=== PATIENT | male | born 1945 | race Caucasian/White ===

== ENCOUNTER 2021-03-25 13:03 | Inpatient (IN) | payer OTHER ==
[~2021-03-25] VITALS: Ht 167.6 cm; Wt 58.3 kg
[2021-03-25 13:39] LABS: BASOPHILS ABSOLUTE AUTO 0.02 K/mm3 (0.00-0.23); BASOPHILS PERCENT AUTO 0 % (0-2); EOSINOPHILS ABSOLUTE AUTO 0.01 K/mm3 (0.00-0.68); EOSINOPHILS PERCENT AUTO 0 % (0-6); Hematocrit 47.5 % (37.0-53.0); Hemoglobin 15.7 g/dL (13.5-17.5); IMMATURE GRAN ABSOLUTE AUTO 0.02 K/mm3 (0.00-0.10); IMMATURE GRAN PERCENT AUTO 0 % (0-1); LYMPHOCYTES ABSOLUTE AUTO 1.05 K/mm3 (0.84-5.20); LYMPHOCYTES PERCENT AUTO 14 % (21-46); MONOCYTES PERCENT AUTO 8 % (4-13); Mean Corpuscular HGB 30.6 pg (26.0-34.0); Mean Corpuscular HGB Conc 33.1 g/dL (31.5-36.5); Mean Corpuscular Volume 93 fL (80-100); Mean Platelet Volume 10.1 fL (9.1-12.4); NEUTROPHILS ABSOLUTE AUTO 6.08 K/mm3 (1.96-9.15); NEUTROPHILS PERCENT AUTO 78 % (41-73); Platelet Count 200 K/mm3 (150-400); RDW Standard Deviation 44.9 fL (35.1-46.3); Red Blood Cell Count 5.13 M/mm3 (4.30-5.90); White Blood Cell Count 7.78 K/mm3 (4.00-11.30)
[2021-03-25] MEDS ORDERED: ZOCOR20 MG PO (13:59)
[2021-03-25] MEDS ORDERED: OMEP20ER PO (13:59)
[2021-03-25] MEDS ORDERED: CYCL10 PO (14:00)
[2021-03-25] MEDS ORDERED: VITAMIN D325 MC3 PO (14:02)
[2021-03-25] MEDS ORDERED: GABA800 PO (14:02)
[2021-03-25] MEDS ORDERED: ZESTORETIC 20-1 EAC1 PO (14:03)
[2021-03-25] MEDS ORDERED: HYDR1TAB94 PO (14:04)
[2021-03-25 14:05] LABS: Alanine Aminotransfer (ALT/SGP 17 U/L (12-78); Albumin, Blood 3.2 g/dL (3.4-5.0); Albumin/Globulin Ratio 0.8 (0.8-1.8); Alk Phos 132 U/L (50-136); Anion Gap 6 mmol/L (6-16); Aspartate Aminotrans (AST/SGOT 32 U/L (12-37); Bilirubin, Total 0.8 mg/dL (0.1-1.0); Blood Urea Nitrogen 13 mg/dL (8-24); Bun/Creatinine Ratio 16.1 (12.0-20.0); CO2, Blood 28 mmol/L (21-32); Calcium, Blood 9.1 mg/dL (8.5-10.1); Chloride, Blood 102 mmol/L (98-108); Creatinine, Blood 0.81 mg/dL (0.60-1.20); Globulin, Blood 3.9 g/dL (2.2-4.0); Glomerular Filtration Rate >60 (60-); Glucose, Blood 113 mg/dL (70-99); Potassium, Blood 4.4 mmol/L (3.5-5.5); Sodium, Blood 136 mmol/L (136-145); Total Protein, Blood 7.1 g/dL (6.4-8.2)
[2021-03-25 14:06] LABS: Source, Urine Voided
[2021-03-25 14:09] LABS: Ethanol (Alcohol), Blood, Med <3 mg/dL
[2021-03-25 14:17] LABS: Bilirubin, Urine Neg (Neg); Blood, Urine Neg (Neg); Glucose Qualitative, Urine Neg (Neg); Ketones, Urine 1+ (Neg); Leukocyte Esterase, Urine Neg (Neg); Nitrite, Urine Neg (Neg); Protein, Urine Neg (Neg); Specific Gravity, Urine 1.025 (1.003-1.022); Urobilinogen, Urine NORM (Normal)
[2021-03-25 14:21] LABS: Appearance, Urine Clear (Clear); Color, Urine Pale Yellow (P-Yellow)
[2021-03-25 14:46] LABS: Influenza A, PCR NEGATIVE (NEGATIVE); Influenza B, PCR NEGATIVE (NEGATIVE); Resp Syncytial Virus, PCR NEGATIVE (NEGATIVE); SARS-Cov-2 (COVID-19) PCR, MMC NEGATIVE (NEGATIVE)
--- NOTE | 2021-03-25 21:30 | NUR ---
HOSPITALIST CALL ASSUMED CARE OF PT AT 2100. PT ARRIVED ON STRETCHER WITH CARDIZEM DTT. PT BLOOD PRESSURE WAS 104 SYSTOLIC. H&P NOTE STATED PT WAS TO HAVVE PRMISSIVE HYPERTENSIVE HTN. CALL MAKJOSE TO DR. BISHOP. ORDERED AMIO DTT WITH BOLUS AND 500NS BOLUS. PT BP DROPPED TO 91 SYSTOLIC, BOLUS STOPPED BUT DTT CONTINUED TO TO AFIB. AT 2230 PT CONVERTED TO SINUS IN THE 70'S. BLOOD PRESSURES STABLE IN THE 110-119 SYSTOLIC RANGE.
--- NOTE | 2021-03-26 06:06 | NUR ---
SHIFT SUMMARY ASSUMED CARE OF PT AT 1900. PT IS A/OX4. SPEAK IS GARBLED AND PT HAS TROUBLE FINDING WORDS. PT L SIDE IS WEAK, PT UNABLE TO MOVE ON HIS OWN. LEG AND ARMS HAVE JERKING MOVEMENTS WHEN TOUCHED. PT STATES HE CAN STILL FEEL SENSATION AND THAT HE CAN OMVE HIS LIMBS BUT PT UNABLE TO MOVE THEM ON HIS COMMAND. PT HAS L EYE AND FACIAL DROOP. PT WAS CONTIENT OF URINE ONCE AND INCONTIENT A DIFFERENT TIME. PT WAS IN AFIB RVR AT THE START OF SHIFT BUT CONVERTED TO SINUS RHYTHM. PT IS NOW BACK INTO AFIB @ 0600. RATE CONTROLLED AT 114 BPM. VITALS STABLE, AMIO DTT RUNNING.
--- NOTE | 2021-03-26 10:17 | NUR ---
UPDATE PT SEEN BY SPEECH THERAPY, SPEECH THERAPIST PUT IN ORDERS FOR NO PO MEDS. DR NOTIFIED OF SPEECH THERAPY ORDERS AT 1019. INSTRUCTIONS TO HOLD ALL ORAL MEDS FROM
--- NOTE | 2021-03-26 16:54 | NUR ---
SHIFT SUMMARY PT A/O X4 AND COOPERATIVE OF CARE. VSS THROUGHOUT SHIFT WITH O2 SATS >94% ON RA. NE REPORT OF CHEST PAIN/PRESSURE THROUGHOUT SHIFT. NO REPORT OF DYSPNEA/SOB THROUGHOUT SHIFT. PT SEEN BY SPEECH THERAY, FAILLED SWALLOW EVAL. PT NPO, CAN HAVE ICE CHIPS. PT SEEN BY PT/OT, PT ABLE TO SIT AT EDGE OF BED, TOLERATED WELL. AMIO GTT RUNNING PER EMAR. NS RUNNING PER EMAR. PT ABLE TO TURN SELF ON LEFT SIDE AND BACK TO HIS BACK.
--- NOTE | 2021-03-27 05:33 | NUR ---
SHIFT SUMMARY: PATIENT'S BP PERMISSABLY HIGH, HR AND O2 WNL. A&O X4. PATIENT HAS SMOKER COUGH. Q4 ORAL CARE PROVIDED WITH PATIENT IN 90* POSITION TO RELIEVE DRY MOUTH AND SUCTION PHLEGM PATIENT DOES NOT PROTECT AIRWAY WELL. PATIENT SHIFTS IN BED, BUT UNABLE TO MOVE LEFT SIDE. PREFERS TO LAY ON LEFT SIDE. PATIENT HAS HAD LITTLE OUTPUT THIS SHIFT - ONE INCONTINENT EVENT. PLEASANT AND COOPERATIVE WITH CARE - VERY MODEST. WILL CONTINUE TO MONITOR AND REPORT TO ONCOMING RN.
--- NOTE | 2021-03-27 15:16 | NUR ---
TRANSFER SUMMARY: PATIENT WAS TRANSPORTED VIA BED BY RN AND PCT, PATIENT HAD IMPROVING NEURO CHECKS, AND LEFT SIDED DEFICIT WAS MINIMALLY BETTER. PATIENT HAS BEEN ON RA SP02>95%. PATIENT SB TO SR MID 50-60'S DENIED CHEST PAIN, SOB. INFUSING 75mL, TO FINISH THE SECOND BAG THAT IS ORDERED. PATIENT HAD A RIGHT FOREARM IV 20 GAUGE. LEFT PUPIL WAS MORE SLUGGISH. R = 3 L = 4. Q2 TURNS AND Q4 ORAL CARE. PATIENT AND RECIEVING RN HAD NO QUESTIONS COMMENTS OR CONCERNS.
--- NOTE | 2021-03-27 18:03 | NUR ---
SHIFT SUMMARY: ASSUMED CARE OF PATIENT AT 1504 UPON HIS ARRIVAL FROM PCU. A&O X 2, LUE AND LLE WITH NO MOTOR RESPONSE, BUT SENSATION INTACT. DENIES PAIN. TELEMETRY SHOWS SINUS ALBA-SINUS RHYTHM 55-70 WITH PAC'S. NO S/S OF ETOH W/D. TOLERATING MEDS IN VANILLA PUDDING. ATTENDS IN PLACE.
--- NOTE | 2021-03-28 05:18 | NUR ---
SHIFT SUMMARY: VSS, CIWA SCORES ARE "0". ABLE TO MAKE HIS NEEDS KNOW WITH A CLEAR VOICE. LEFT UPPER EXT. IS FLACCID, LEFT LEG HAS VERY SLIGHT MOVEMENT AT TIMES. GENERALIZED WEAKNESS OBSERVED. INC. OF URINE. A LOOSE COUGH OBSERVED, UNABLE TO BRING SECRETIONS UP OUT OF MOUTH AND NEEDS SUCTIONING PRN. MUCUS IS CLEAR. SOME COUGHING OBSERVED WITH FLUID INTAKE VIA SPOON. PILLS ARE GIVEN CRUSED IN APPLE SAUCE. LOPRESSOR WAS HELD AT HS DUE TO BRADYCARDIA 56-60.
--- NOTE | 2021-03-28 16:55 | NUR ---
PATIENT IS AWAKE,ALERT AND ORIENTED TIMES THREE WITH LEFT SIDE WEAKNESS. PATIENT WAS ABLE TO MOVE BOTH UPPER AND LOWER EXTREMITIES ON THE LEFT SIDE. PATIENT SPOKE TO VIA PHONE, HAD APPRORIATE CONVERSATION.NO ACUTE DISTRESS NOTED.
--- NOTE | 2021-03-29 06:39 | NUR ---
SHIFT SUMMARY: NO SIGNIFICANT EVENTS OVER NIGHT. LEFT SIDED WEAKNESS. LIMITED MOVEMENT, HAND BULKER ABSENT. WEAK WET COUGH. LCTA E/U RESP. TELE=SB/NSR. INCONT OF URINE, NO BM. CIWA < 2.
--- NOTE | 2021-03-29 14:10 | NUR ---
PT ARRIVED TO SCU FROM MEDICAL FLOOR AT APPROX 1410 POST FALL IN ROOM/HEAD INJURY. PT IN AxOx4. PLEASANT AND COOPERATIVE WITH CARE. AND SON IN ROOM WITH HIM. NEURO CHECK WNL. PT HAD CT OF HEAD POST FALL. CALLED TO ROOM TO DISCUSS RESULTS. TYLENOL GIVEN FOR HEADACHE. PT REPORTS PAIN IN HEAD AND SOME DROWSINESS. OTHERWISE, FEELING "OK" REPORT TAKEN FROM [facility] FLOOR NURSE, ZAKIA. PT CURRENTLY LAYING IN BED WITH CALL LIGHT IN REACH. REMINDED TO CALL IF HE NEEDS ANYTHING/BEFORE GETTING UP. PT VERBALIZES UNDERSTANDING.
--- NOTE | 2021-03-29 15:17 | NUR ---
PATIENT WAS TRNASFER TO THE SCU FOR CLOSELY MONTORING. REPORT GIVEN TO STEPH. FAMILY AT BEDSIDE.
--- NOTE | 2021-03-29 18:40 | NUR ---
SHIFT SUMMARY PT AxOx4. PLEASANT AND COOPERATIVE WITH CARE. PT ARRIVED TO SCU AT APPROX 1410 AFTER FALL IN ROOM ON MEDICAL FLOOR. CT HEAD DONE. VITALS STABLE. FAMILY IN ROOM. NEURO CHECKS WNL. DR IN ROOM TALKING WITH FAMILY ABOUT STATUS AND CARE PLAN. PT REPORTS HEADACHE. MEDICATED PER EMAR WITH REPORTED RELIEF. CURRENT PLAN IS TO MONITOR FOR BLEEDING/AMS AND PLAN DC TO SNF. PT CURRENTLY SITTING IN BED EATING DINNER. DENIES ANY NEEDS AT THIS TIME. CALL LIGHT IN REACH.
--- NOTE | 2021-03-30 06:57 | NUR ---
PT with acute RT CVA recently transferred from [facility] after ground level fall with headhit yesterday. Neuro checks Q 4 hours unchanged & PT responsds to verbl stimuli. LT upper extem flaccid nilat le wek. Room air but PT has loose moist nonprod cough. [employer] PT recieves [facility] services. DC planning to stroke rehab. long time smoker, no active ETOH WD noted.
--- NOTE | 2021-03-30 17:32 | NUR ---
ELECTRICAL SERVICE TECHNICIAN NOTIFIED RN OF PATIENT'S 6 BEAT RUN OF VTACH. PATIENT STATES HE WAS ASYMPTOMATIC AT THAT TIME. DR. ABAD NOTIFIED
--- NOTE | 2021-03-30 17:48 | NUR ---
PATIENT IS ALERT AND ORIENTED TO SELF AND FOLLOWING DIRECTIONS. LEFT HAND IS FLACCID, HE IS ABLE TO LIFT HIS LEFT ARM. LEFT LEG IS WEAKER THAN THE RIGHT BUT HE IS ABLE TO MOVE IT AND STAND. HE LEANS WITH STANDING. PATIENT WORKED WITH PT AND OT TODAY, SAT UP ON THE EDGE OD BED AND STOOD WITH 2PA. NO C/O HEADACHE. ST WORKED WITH THE PATIENT TODAY, NO CHANGES TO HIS DIET. A MODIFIED BARIUM SWALLOW IS ORDERED FOR TOMORROW. INCONTINENT OF BOWEL AND BLADDER, ATTENDS IN PLACE. WILL CONTINUE TO MONITOR
--- NOTE | 2021-03-31 06:52 | NUR ---
PT making good progress post acute CVA with lt sided hemiparesis with improved strenth lt upper & lower extremity. No acute alcohol withdrawl noted. Neuro checks slightly improving. Tolerating diet pureed 90 to 100%. HAs barium swallow pending today. Medicated to headache pain x 1 with helpful effect.
--- NOTE | 2021-03-31 16:11 | NUR ---
PATIENT A&O 1-2, COOPERATIVE WITH CARE, ABLE TO FOLLOW DIRECTIONS. LEFT ARM FLACCID, LEFT LEG WEAKER THAT THE RIGHT. BARIUN SWALLOW STUDY DONE TODAY, PATIENT WILL CONTINUE ON PUREE DIET, THIN LIQUID WITH SPOON. DENIES PAIN OR DISCOMFORT, IN BED. NO ACUTE CHANGES DURING THIS SHIFT.
[2021-04-01 05:25] LABS: Albumin, Blood 2.4 g/dL (3.4-5.0); Anion Gap 3 mmol/L (6-16); Blood Urea Nitrogen 9 mg/dL (8-24); Bun/Creatinine Ratio 14.4 (12.0-20.0); CO2, Blood 29 mmol/L (21-32); Calcium, Blood 8.4 mg/dL (8.5-10.1); Chloride, Blood 107 mmol/L (98-108); Creatinine, Blood 0.63 mg/dL (0.60-1.20); Glomerular Filtration Rate >60 (60-); Glucose, Blood 91 mg/dL (70-99); Magnesium, Blood 1.9 mg/dL (1.6-2.4); Phosphorus, Blood 3.1 mg/dL (2.5-4.9); Potassium, Blood 3.8 mmol/L (3.5-5.5); Sodium, Blood 139 mmol/L (136-145)
--- NOTE | 2021-04-01 06:24 | NUR ---
Patient is alert and oriented x4. Left sided weakness present during assessment. Patient is unable to lift his left arm. Left leg has weakness. Q2 turns completed. Patient provided with thickened drink. No complains of pain. No signs of distress. Patient is able to verbalize his needs. Verbal is slow, but understandable. VS are wnl. Call light within reach. Bed alarm on.
[2021-04-01 14:26] LABS: Influenza A, PCR NEGATIVE (NEGATIVE); Influenza B, PCR NEGATIVE (NEGATIVE); Resp Syncytial Virus, PCR NEGATIVE (NEGATIVE); SARS-Cov-2 (COVID-19) PCR, MMC NEGATIVE (NEGATIVE)
[2021-04-01] MEDS ORDERED: ACET325 PO (15:54)
[2021-04-01] MEDS ORDERED: METO25ER PO (15:54)
[2021-04-01] MEDS ORDERED: ATOR80 PO (15:54)
[2021-04-01] MEDS ORDERED: NICO21TP TOP (15:55)
[2021-04-01] MEDS ORDERED: ASPI81CH PO (15:55)
--- NOTE | 2021-04-01 16:06 | NUR ---
PATIENT DISCHARGED TO [facility]. PATIENT STABLE, DENIES PAIN OR DISCOMFORT. DISCHARGE ORDERS SENT WITH [facility] BELONGINGS. TRANSPORTED VIA W/C. REPORT CALLED TO [place], RECEIVING NURSE.
== END 2021-04-01 15:49 | DRG 65 ==
LOC: ER 13:03 → MEDS 18:35 → PCU 18:35 → MEDS 03-27 15:03
PROVIDERS: Emergency Medicine; Internal Medicine; ADMIT Internal Medicine
DX: I63.511 Cerebral infarction due to unspecified occlusion or stenosis of right middle cerebral artery (principal); F10.230 Alcohol dependence with withdrawal, uncomplicated; G81.94 Hemiplegia, unspecified affecting left nondominant side; Z20.822 Contact with and (suspected) exposure to COVID-19; E78.5 Hyperlipidemia, unspecified; S00.83XA Contusion of other part of head, initial encounter; K21.9 Gastro-esophageal reflux disease without esophagitis; Z71.6 Tobacco abuse counseling; I10 Essential (primary) hypertension; F17.210 Nicotine dependence, cigarettes, uncomplicated; G89.29 Other chronic pain; Z79.899 Other long term (current) drug therapy; W18.30XA Fall on same level, unspecified, initial encounter
CPT/HCPCS: 0241U; 36415; 51701; 70450; 70496; 70498; 71045; 72125; 74230; 80053; 80069; 81003; 83735; 85025; 92526; 92610; 92611; 93005; 93010; 93306; 96374-59; 96376-59; 97110; 97112; 97161; 97166; 97530; 99285-25; A9270; G0480; J0282; J1650; J7030; J7040; J7060; Q9967

== ENCOUNTER 2021-05-25 10:19 | Emergency (ER) | payer OTHER ==
[~2021-05-25] VITALS: Ht 167.6 cm; Wt 59.0 kg
[~2021-05-25 10:19] MED LIST: ACET325 PO; ASPI81CH PO; ATOR80 PO; CYCL10 PO; GABA800 PO; HYDR1TAB94 PO; METO25ER PO; NICO21TP TOP; OMEP20ER PO; VITAMIN D325 MC3 PO; ZESTORETIC 20-1 EAC1 PO; ZOCOR20 MG PO
[2021-05-25 12:51] LABS: Source, Urine Clean Catch
[2021-05-25 12:54] LABS: Appearance, Urine Cloudy (Clear); Bilirubin, Urine Neg (Neg); Blood, Urine 4+ (Neg); Color, Urine Yellow (P-Yellow); Glucose Qualitative, Urine Neg (Neg); Ketones, Urine 3+ (Neg); Leukocyte Esterase, Urine 2+ (Neg); Nitrite, Urine Pos (Neg); Protein, Urine 2+ (Neg); Urobilinogen, Urine 3+ (Normal)
[2021-05-25 13:05] LABS: White Blood Cells, Urine 25-50 /hpf (0-5)
[2021-05-25 13:06] LABS: Bacteria Many /hpf; Squamous Epithelial Cells Rare /hpf (Few)
[2021-05-25] MEDS ORDERED: SULTRIDS PO ×2 (13:20→15:19)
[2021-05-25] MEDS ORDERED: ONDA4ODT MM ×2 (13:21→15:19)
== END 2021-05-25 13:49 | disposition home or self-care (01) ==
LOC: ER 10:19
PROVIDERS: Physician Assistant
DX: N39.0 Urinary tract infection, site not specified (principal); R31.29 Other microscopic hematuria; I10 Essential (primary) hypertension; E78.5 Hyperlipidemia, unspecified; K21.9 Gastro-esophageal reflux disease without esophagitis; Z79.899 Other long term (current) drug therapy
CPT/HCPCS: 51701; 81001; 87077; 87086; 87186; 99283; A9270

== ENCOUNTER 2021-06-08 19:50 | Inpatient (IN) | payer OTHER ==
[~2021-06-08] VITALS: Ht 167.6 cm; Wt 58.8 kg
[~2021-06-08 19:50] MED LIST changes: +ONDA4ODT MM; +SULTRIDS PO
[2021-06-08 20:11] LABS: PCO2 Arterial 28.3 mmHg (35-45); PO2 Arterial 130 mmHg (80-100)
[2021-06-08 20:12] LABS: BASOPHILS ABSOLUTE AUTO 0.05 K/mm3 (0.00-0.23); BASOPHILS PERCENT AUTO 0 % (0-2); EOSINOPHILS ABSOLUTE AUTO 0.01 K/mm3 (0.00-0.68); EOSINOPHILS PERCENT AUTO 0 % (0-6); Hemoglobin 11.3 g/dL (13.5-17.5); IMMATURE GRAN PERCENT AUTO 1 % (0-1); LYMPHOCYTES ABSOLUTE AUTO 1.81 K/mm3 (0.84-5.20); LYMPHOCYTES PERCENT AUTO 9 % (21-46); MONOCYTES ABSOLUTE AUTO 1.43 K/mm3 (0.16-1.47); MONOCYTES PERCENT AUTO 7 % (4-13); Mean Corpuscular HGB 30.2 pg (26.0-34.0); Mean Corpuscular HGB Conc 32.3 g/dL (31.5-36.5); Mean Corpuscular Volume 94 fL (80-100); Mean Platelet Volume 10.7 fL (9.1-12.4); NEUTROPHILS ABSOLUTE AUTO 17.65 K/mm3 (1.96-9.15); NEUTROPHILS PERCENT AUTO 84 % (41-73); Platelet Count 262 K/mm3 (150-400); RDW Coefficient Variation 14.9 % (11.7-14.2); RDW Standard Deviation 51.1 fL (35.1-46.3); Red Blood Cell Count 3.74 M/mm3 (4.30-5.90); White Blood Cell Count 21.15 K/mm3 (4.00-11.30)
[2021-06-08 20:15] LABS: Calcium, Ionized (POC) 1.05 mmol/L (1.10-1.46); Chloride (POC) 106 mmol/L (98-108); Creatinine (POC) 1.7 mg/dL (0.8-1.3); Glucose (ISTAT POC) 178 mg/dL (70-99); Hemoglobin (POC) 11.6 g/dL (13.5-17.5); Potassium (POC) 5.7 mmol/L (3.5-5.5); Sodium (POC) 134 mmol/L (135-148); Total CO2 (POC) 17 mmol/L (21-32)
[2021-06-08 20:53] LABS: Albumin, Blood 2.7 g/dL (3.4-5.0); Albumin/Globulin Ratio 0.8 (0.8-1.8); Bilirubin, Total 0.9 mg/dL (0.1-1.0); Calcium, Blood 8.6 mg/dL (8.5-10.1); Creatinine, Blood 1.57 mg/dL (0.60-1.20); Globulin, Blood 3.5 g/dL (2.2-4.0); Magnesium, Blood 2.6 mg/dL (1.6-2.4); Potassium, Blood 5.5 mmol/L (3.5-5.5); Total Protein, Blood 6.2 g/dL (6.4-8.2)
[2021-06-08 21:28] LABS: Source, Urine Foley catheter
[2021-06-08 21:49] LABS: Appearance, Urine Hazy (Clear); Blood, Urine 3+ (Neg); Color, Urine Amber (P-Yellow); Glucose Qualitative, Urine Neg (Neg); Ketones, Urine 1+ (Neg); Leukocyte Esterase, Urine 2+ (Neg); Nitrite, Urine Neg (Neg); Protein, Urine 3+ (Neg); Specific Gravity, Urine 1.015 (1.003-1.022); Urobilinogen, Urine 1+ (Normal)
[2021-06-08 22:12] LABS: Influenza A, PCR NEGATIVE (NEGATIVE); Influenza B, PCR NEGATIVE (NEGATIVE); Resp Syncytial Virus, PCR NEGATIVE (NEGATIVE); SARS-Cov-2 (COVID-19) PCR, MMC NEGATIVE (NEGATIVE)
[2021-06-08 22:15] LABS: Bilirubin, Urine 1+ (Neg)
[2021-06-08 22:17] LABS: Amorphous Light (0-Heavy); Bacteria Many /hpf; Squamous Epithelial Cells Rare /hpf (Few)
[2021-06-08] MEDS ORDERED: Vitamin D1000 UNI1 PO (22:33)
[2021-06-09 01:17] LABS: International Normalized Ratio 1.15
[2021-06-09 01:33] LABS: CPK Creatine Kinase 289 U/L (39-308)
[2021-06-09 04:41] LABS: BASOPHILS ABSOLUTE AUTO 0.05 K/mm3 (0.00-0.23); BASOPHILS PERCENT AUTO 0 % (0-2); Hematocrit 30.6 % (37.0-53.0); Hemoglobin 10.1 g/dL (13.5-17.5); LYMPHOCYTES ABSOLUTE AUTO 1.16 K/mm3 (0.84-5.20); LYMPHOCYTES PERCENT AUTO 8 % (21-46); MONOCYTES PERCENT AUTO 2 % (4-13); Mean Corpuscular HGB 30.2 pg (26.0-34.0); Mean Corpuscular Volume 92 fL (80-100); Mean Platelet Volume 11.2 fL (9.1-12.4); Platelet Count 249 K/mm3 (150-400); RDW Coefficient Variation 14.8 % (11.7-14.2); RDW Standard Deviation 49.3 fL (35.1-46.3); Red Blood Cell Count 3.34 M/mm3 (4.30-5.90); White Blood Cell Count 15.16 K/mm3 (4.00-11.30)
[2021-06-09 04:47] LABS: EOSINOPHILS ABSOLUTE AUTO 0.03 K/mm3 (0.00-0.68); EOSINOPHILS PERCENT AUTO 0 % (0-6); IMMATURE GRAN ABSOLUTE AUTO 0.08 K/mm3 (0.00-0.10); IMMATURE GRAN PERCENT AUTO 1 % (0-1); NEUTROPHILS ABSOLUTE AUTO 13.54 K/mm3 (1.96-9.15); NEUTROPHILS PERCENT AUTO 89 % (41-73)
[2021-06-09 05:13] LABS: Albumin, Blood 2.2 g/dL (3.4-5.0); Albumin/Globulin Ratio 0.7 (0.8-1.8); Bilirubin, Total 0.7 mg/dL (0.1-1.0); Bun/Creatinine Ratio 43.9 (12.0-20.0); Calcium, Blood 7.3 mg/dL (8.5-10.1); Creatinine, Blood 1.96 mg/dL (0.60-1.20); Potassium, Blood 4.8 mmol/L (3.5-5.5); Total Protein, Blood 5.2 g/dL (6.4-8.2)
--- NOTE | 2021-06-09 07:26 | NUR ---
SHIFT SUMMERY: PT REPORT RECEIVED FROM ED RN AT 2330. PT ARRIVED TO ICU AT 2350. PT WAS PLACED IN ICU BED AND CONNECTED TO MONITOR. PT ABLE TO WAKE TO VOICE AND FOLLOW COMANDS AND IS ORIENTED TO SELF AND PLACE. LEVOPHED WAS INCREASED ON THE PT'S ARRIVAL TO ICU AND MD MADE AWARE THAT THE LEVOPHED WAS INCREASED ABOVE 10 MCG/MINUTE. DR. SAMANIEGO ARRIVED AT BEDSIDE AND PLACED A RIGHT IJ CVC AT 0100. LEVOPHED WAS THEN INFUSED THROUGH THE CVC. PT'S PEDAL PULSES ARE PRESENT WITH DOPPLER AND RADIAL PULSES ARE VERY WEAK TO PALPATION AND SOMEWHAT INTERMITTANT WITH DOPPLAR, MAKING IT VERY DIFFICULT TO OBTAIN A MANUAL BP. BP'S SEEM TO BE THE MOST CONSISTANT WHEN TAKEN ON THE RIGHT FORE ARM AND HOLDING THE PT'S HAND TO PREVENT TREMORS/SPASMS. LEVOPHED EVENTUALLY INCREASED TO 20 MCG/MINUTE AND VASSOPRESSIN WAS ORDERED PER DR. SAMANIEGO'S VERBAL DIRECTION. PT ALSO GIVEN AN ADDITIONAL 500ML/NS DUE TO LOW URINE OUT PUT FROM THE HERNADEZ. PT'S SKIN HAS REDDNESS ON THE COCCYX WITH IS BLANCHABLE AND A SKIN PROTECTION DRESSING WAS PLACED. PHOTOS WERE TAKEN OF SKIN TEARS AND AN ABRASION THAT IS PRESENT ON THE PT'S LEFT ELBOW AREA. ON ARRIVAL THE ABRASION WAS COVERED WITH A DRESSING DATED 06/04. A NEW NON-ADHERENT DRESSING WAS PLACED.
--- NOTE | 2021-06-09 09:51 | NUR ---
AM NOTE: ASSUMED CARE OF PT AT 0700. PT ASLEEP AT THIS TIME. CURRENTLY LEVOPHED IS AT 20 MCG/MIN. SBP MAINTAINED IN THE 80'S WITH MAPS 65<. THERE WAS CRACKLES HEARD IN THE LLL; RESPIRATIONS BETWEEN 20-22. BREATHING APPEARS TO BE SHALLOW. PT HAS COOL BLE; CAP. REFIL IS GREATER THAN FIVE SECONDS IN RIGHT FOOT AND PEDAL PULSE HEARD WITH DOPPLER, BUT WAS MORE FAINT WHEN COMPARED TO THE LEFT FOOT. PT'S SKIN APPEARS TO BE VERY FRAGILE AND THIN. URINE OUTPUT CONTINUES TO BE DECREASED WITH OUTPUT AT 30 MLS/HR. PT'S ABD IS FRIM WHEN PALPATED AND THERE IS TENDERNESS IN THE LUQ. AT BEDSIDE AT 0900 TO ASSESS PT; VERBAL ORDERS PUT IN BY CARLOS MANUEL KATE FOR A FLUID BOLUS OF 500 MLS TO HELP MAINTAIN SBP AND INCREASE URINE OUTPUT. TEMPERATURE IS MAINTAINED AT 99.4. NEW ANTIBIOTIC ORDERS RECIEVED AND IMPLEMENTED THIS MORNING. PT'S AT BEDSIDE THIS MORNING AT 0945 AND RECIEVED UPDATE ON PTS'S STATUS AND PLAN OF CARE; ALL OF 'S QUESTIONS WERE ANSWERED AT THIS TIME. WILL CONTINUE TO MONITOR THROUGOUT THE DAY.
[2021-06-09 12:59] LABS: Bun/Creatinine Ratio 40.7 (12.0-20.0); Calcium, Blood 7.1 mg/dL (8.5-10.1); Creatinine, Blood 2.09 mg/dL (0.60-1.20); Potassium, Blood 4.5 mmol/L (3.5-5.5)
--- NOTE | 2021-06-09 13:09 | NUR ---
PT UPDATE.... THE PT CONTINUES TO BE ON LEVOPHED RUNNING AT 20MCG/MIN TO KEEP MAPS >60, THE PT'S BP RESULTS HAVE BEEN UNSTABLE WITH ONE READING SHOWING 86/46 AND THE NEXT SHOWING 139/91, A DOPPLER BP WAS DONE DURING THIS TIME AND SHOWED 86. THE PT IS MINAMALLY RESPONSIVE, OPENING HIS EYES TO VERBAL STIMULI BUT NOT REALLY ANSWERING QUESTIONS. THE PT'S FACE IS TOLBERT/PALE AND THE TIP OF HIS NOSE IS A WAXY ROMANO. AN ECHO WAS DONE THIS AM, DR. KNUTSON CALLED AND NOTIFIED THE CHARGE NURSE GIA THAT A POSSIBLE VEGITATION WAS SEEN ON THE AORTIC VALVE. DR. BISHOP WAS NOTIFIED AND NEW ORDERS FOR CONSULTS FOR CARDIOLOGY AND LEAD FRONT END DEVELOPER WERE PLACED AND CALLED IN BY THIS RN. PALLIATIVE CARE WAS ALSO CONSULTED. THE PT'S URINARY OUTPUT HAS DECREASED FROM 0800 WHEN IT WAS 30MLS/HR TO THE CURRENT RATE OF 18MLS/HR. THE PT HAS NS RUNNING AT 125MLS/HR AND A BICARB DRIP AT 100MLS/HR. WILL CONTINUE TO MONITOR.
--- NOTE | 2021-06-09 18:09 | NUR ---
SHIFT SUMMARY: PT'S NEUROLOGICAL STATUS HAS IMPROVED SLIGHTLY WITH THE ABILITY TO CARRY SIMPLE CONVERSATIONS DURING CARE, BUT IS STILL ONLY ORIENTED TO SELF. PT CONTINUED TO HAVE SHOFT BP'S THROUGHOUT THE SHIFT, SO VASOPRESSIN WAS INITIATED AT 0.04 MCG/MIN. PT HAS RECIEVED FLUIDS THROUGHOUT THE DAY AND SBP'S STARTING TO GET BETTER THE DAY WENT ON. THE LEVOPHED WAS ABLE TO BE TITRATED DOWN FROM 20 MCG TO 10 MCG. PT HAS TOLERATED THE TITRATION WELL. TEMPERATURE HAS SLIGHTLY INCREASED TOWARDS THE END OF THE SHIFT TO 99.8. PT'S , CHESTER, WAS UPDATED BY DR. DRUMMOND ABOUT PT'S STATUS AND PLAN OF CARE; ALL QUESTIONS WERE ANSWERED. PT WAS ABLE TO HAVE A LOOSE BM THIS SHIFT. PT REMAINS STABLE AT THIS TIME WITH SBP IN THE 130'S, HR AT 86, O2 95<, AND RR AT 18. PT'S HAS BEEN IN SINUS RYTHM FOR THE AFTERNOON. PT HAS INDWELLING CATHETER THAT IS PATENT AND DRAINING TO GRAVITY. WILL CONTINUE TO MONITOR UNTIL GIVING REPORT TO ONCOMING NIGHT RN.
--- NOTE | 2021-06-09 18:16 | NUR ---
SHIFT SUMMARY... NO ACUTE NEGATIVE CHANGES NOTED SINCE PREVIOUS NOTES, THE PT'S BP HAS BEEN MOST ACCURATE ON THE PT'S RIGHT UPPER ARM. THE PT'S LEVOPHED HAS BEEN TITRATED DOWN FROM 20MCG/MIN TO 10MCG/MIN AND THE VASO IS RUNNING AT 0.04U/MIN WITH MAPS >60. THE PT'S O2 HAS BEEN 2-5L NC WITH O2 SATS >90%. THE PT'S MENTATION IMPROVED THIS AFTERNOON, HE WAS ABLE TO KEEP HIS EYES OPEN AND SPEAK WITH HIS AND THE PROVIDERS. THE PT IS TO BE NPO AFTER MIDNIGHT FOR A MAI TOMORROW. THE PT WAS CHANGED FROM A FULL CODE TO A DNR PER THE PT'S WISHES. THE PT HAD A LARGE INCONT DARK BROWN FORMED BM THIS SHIFT. THE PT'S HERNADEZ IS PATENT AND HE HAD 315MLS OF DARK JACQUELINE URINE THIS SHIFT. WILL CONTINUE TO MONITOR UNTIL REPORT IS GIVEN TO ONCOMING RN.
[2021-06-10 03:09] LABS: BASOPHILS ABSOLUTE AUTO 0.02 K/mm3 (0.00-0.23); BASOPHILS PERCENT AUTO 0 % (0-2); Hematocrit 22.8 % (37.0-53.0); Hemoglobin 7.8 g/dL (13.5-17.5); LYMPHOCYTES ABSOLUTE AUTO 0.79 K/mm3 (0.84-5.20); LYMPHOCYTES PERCENT AUTO 13 % (21-46); MONOCYTES ABSOLUTE AUTO 0.16 K/mm3 (0.16-1.47); MONOCYTES PERCENT AUTO 3 % (4-13); Mean Corpuscular HGB 30.5 pg (26.0-34.0); Mean Corpuscular HGB Conc 34.2 g/dL (31.5-36.5); Mean Corpuscular Volume 89 fL (80-100); Mean Platelet Volume 11.1 fL (9.1-12.4); Platelet Count 174 K/mm3 (150-400); RDW Coefficient Variation 15.3 % (11.7-14.2); Red Blood Cell Count 2.56 M/mm3 (4.30-5.90); White Blood Cell Count 6.09 K/mm3 (4.00-11.30)
[2021-06-10 03:37] LABS: EOSINOPHILS PERCENT AUTO 0 % (0-6); IMMATURE GRAN ABSOLUTE AUTO 0.03 K/mm3 (0.00-0.10); IMMATURE GRAN PERCENT AUTO 1 % (0-1); NEUTROPHILS ABSOLUTE AUTO 5.09 K/mm3 (1.96-9.15); NEUTROPHILS PERCENT AUTO 84 % (41-73)
[2021-06-10 03:45] LABS: Albumin, Blood 2.7 g/dL (3.4-5.0); Albumin/Globulin Ratio 1.1 (0.8-1.8); Bilirubin, Total 0.8 mg/dL (0.1-1.0); Bun/Creatinine Ratio 46.2 (12.0-20.0); Calcium, Blood 6.8 mg/dL (8.5-10.1); Creatinine, Blood 1.58 mg/dL (0.60-1.20); Globulin, Blood 2.4 g/dL (2.2-4.0); Magnesium, Blood 1.9 mg/dL (1.6-2.4); Potassium, Blood 3.7 mmol/L (3.5-5.5); Total Protein, Blood 5.1 g/dL (6.4-8.2)
--- NOTE | 2021-06-10 06:49 | NUR ---
SHIFT SUMMERY: PT ALERT BUT ONLY ORIENTED TO SELF THROUHGOUT THE NIGHT AND HAS BEEN RESTLESS. PT'S EKG SHOWED A-FIB WITH RVR AT AROUND 0200, WITH RATES OF 120'S-160'S. PT DENIES CHEST PAIN AND SOB, IN FACT HE DENIES PAIN IN GENERAL. MD MADE AWARE AND LABS DRAWN EARLY. WITH CONTINUED TACHYCARDIA THE DECISION WAS MADE BY DR. SAMANIEGO TO TRANSITION FROM LEVOPHED TO PHENYLEPHRINE. MAI SCHEDULED FOR THIS MORNING, AROUND 1000.
--- NOTE | 2021-06-10 07:10 | NUR ---
ASSUMPTION OF CARE PT CURRENTLY SLEEPING, OPENS EYES TO VERBAL STIMULI BUT REMAINS DROWSY. HE IS RECEIVING LEVOPHED 3MCG/MIN, VASOPRESSIN 0.04UNITS/MIN, NEOSYNEPHRINE 30MCG/MIN AND NS 125ML/HR. HE IS IN AFIB WITH HR FLUCTUATING BETWEEN 120S-140S. SBP 120S, WILL TITRATE DRIPS ACCORDINGLY. RIJ IN PLACE, DRESSING WNL. HERNADEZ PATENT AND DRAINING JACQUELINE URINE TO GRAVITY. SEE SHIFT ASSESSMENT.
--- NOTE | 2021-06-10 09:51 | NUR ---
UPDATE DR BISHOP AND DR DRUMMOND AT BEDSIDE. NEW MED ORDERS RECEIVED, SEE EMAR. PLAN FOR MAI THIS AM.
--- NOTE | 2021-06-10 10:59 | NUR ---
MAI MAI DONE BY DR TAYLOR, DR MCKEON AND PATROL POLICE SERGEANT. PT RECEIVED 20MCG PROPOFOL, 40MG LIDOCAINE, 1MG VERSED, AND 100MCG PHENYLEPHRINE. PT TOLERATED PROCEDURE WELL.
--- NOTE | 2021-06-10 15:14 | NUR ---
UPDATE PT RESTING COMFORTABLY IN BED. , CHESTER, WAS AT BEDSIDE FOR A COUPLE HOURS. SHE WAS UPDATED BY DR DRUMMOND. ASKED OCCASIONAL QUESTIONS WHILE VISITING. PT REMAINS DROWSY, WAKENS TO VERBAL STIMULI. ANSWERS QUESTIONS BY NODDING OR USING SHORT PHRASES.
--- NOTE | 2021-06-10 16:50 | NUR ---
SHIFT SUMMARY PT CONTINUES TO RECEIVE VASOPRESSIN 0.04UNITS/MIN, LEVOPHED 6MCG/MIN, DILTIAZEM 10MG/HR, AND NS 125ML/HR. HE REMAINS IN AFIB WITH RATE 80S-90S. HE IS STRICT NPO. NC AT 3L WITH SPO2 >95%. HERNADEZ PATENT AND DRAINING JACQUELINE URINE. HE HAD 2 LIQUID STOOLS TODAY. CORE TMAX 100.2, ORDER RECEIVED FOR TYLENOL. PT DENIES PAIN OR DISCOMFORT. REPORT GIVEN TO DANIEL KATE.
--- NOTE | 2021-06-10 18:11 | NUR ---
ASSUMED CARE AT 1700. PT DROWSY BUT WAKES TO VOICE, FOLLOWS COMMANDS, NODS APPROPRIATELY. NO SIGNIFICANT EVENTS SINCE ASSUMPTION OF CARE. SEE SHIFT ASSESSMENT FOR DETAILS ON PT STATUS. GTTS: LEVOPHED, VASOPRESSIN, CARDIZEM.
--- NOTE | 2021-06-10 19:20 | NUR ---
ASSESSMENT/ASSUMED CARE PT AWAKE, SPEECH MUMBLED AND SLOW. HARD TO UNDERSTAND AT TIMES. LUNGS CLEAR BUT DECREASED IN THE BASES ON 3 LITERS O2 VIA NC. RESP EVEN AND NONLABORED. SOB NOTED WITH MOVEMENT. HEART RATE IRREGULAR-AFIB. TRACE BILAT LOWER EXT EDEMA. SKIN FRAGILE. BRUISING NOTED TO UPPER EXT BILAT. COCCYX PINK. ABD FIRM TENDER TO PALPATION. PT INCONT OF LIQUID AND SOFT STOOLS, INCREASED WITH MOVEMENT AND PRESSURE TO ABD. GIO CARE AND CATH CARE DONE. LINEN CHANGED. REPOSITIONED TO RIGHT WITH HOB UP, EXT ELEVATED ON PILLOWS. CENTRAL LINE TO RIGHT IJ WITH NS AT 125 ML/HR, LEVOPHED AT 6 MCQ/MIN, VASOPRESSIN AT 0.04 UNITS/MIN, NS AT 10 ML/HR WITH DILTIAZEM AT MG/HR. HERNADEZ CATH PATENT DRAINING CLOUDY JACQUELINE URINE.
--- NOTE | 2021-06-10 22:22 | NUR ---
INCONT STOOL PT HAVING LIQUID STOOL. GIO CARE AND LINEN CHANGE DONE. FLEXI SEAL PLACED.
[2021-06-11 01:48] LABS: Hematocrit 20.1 % (37.0-53.0); Hemoglobin 6.8 g/dL (13.5-17.5); Mean Corpuscular HGB 30.5 pg (26.0-34.0); Mean Corpuscular HGB Conc 33.8 g/dL (31.5-36.5); Mean Corpuscular Volume 90 fL (80-100); Mean Platelet Volume 10.8 fL (9.1-12.4); Platelet Count 144 K/mm3 (150-400); RDW Coefficient Variation 15.9 % (11.7-14.2); RDW Standard Deviation 51.4 fL (35.1-46.3); Red Blood Cell Count 2.23 M/mm3 (4.30-5.90); White Blood Cell Count 6.49 K/mm3 (4.00-11.30)
[2021-06-11 02:05] LABS: Albumin, Blood 2.6 g/dL (3.4-5.0); Anion Gap 8 mmol/L (6-16); Blood Urea Nitrogen 50 mg/dL (8-24); Bun/Creatinine Ratio 55.7 (12.0-20.0); CO2, Blood 23 mmol/L (21-32); Calcium, Blood 6.8 mg/dL (8.5-10.1); Chloride, Blood 115 mmol/L (98-108); Glomerular Filtration Rate >60 (60-); Glucose, Blood 123 mg/dL (70-99); Phosphorus, Blood 2.7 mg/dL (2.5-4.9); Potassium, Blood 3.1 mmol/L (3.5-5.5); Sodium, Blood 146 mmol/L (136-145); Vancomycin, Random 7.5 ug/mL
[2021-06-11 02:08] LABS: BAND PERCENT MAN 22 % (0-8); BASOPHILS PERCENT MAN 0 % (0-2); EOSINOPHILS PERCENT MAN 0 % (0-6); LYMPHOCYTES ABSOLUTE MAN 0.58 K/mm3 (0.84-5.20); LYMPHOCYTES PERCENT MAN 9 % (21-46); MONOCYTES ABSOLUTE MAN 0.12 K/mm3 (0.16-1.47); MONOCYTES PERCENT MAN 2 % (4-13); MYELOCYTE ABSOLUTE MAN 0.06 K/mm3 (0.00-0.00); MYELOCYTE PERCENT MAN 1 % (0-0); NEUTROPHILS ABSOLUTE MAN 5.71 K/mm3 (1.96-9.15); SEG NEUTROPHILS PERCENT MAN 66 % (41-73); TOTAL CELLS COUNTED 100
--- NOTE | 2021-06-11 02:16 | NUR ---
H&H PT H&H DOWN TO 6.8/20.1. TALKED WITH PT REGARDING RECEIVING BLOOD PRODUCTS. PT SHOOK HEAD "NO" AND SAID,"I DON'T WANT TO DO THIS ANY MORE". NOTIFIED DR SAMANIEGO REGARDING H&H AND WHAT PT HAD SAID. CALL TO , BUT NO ANSWER MESSAGE LEFT.
--- NOTE | 2021-06-11 02:25 | NUR ---
CALLED BACK. EXPLAINED NEED FOR BLOOD BUT PT REFUSING. ON HER WAY INTO SEE PT.
--- NOTE | 2021-06-11 02:44 | NUR ---
AMIODARONE GTT STARTED AND CARDIZEM STOPPED. WAITING FOR .
--- NOTE | 2021-06-11 03:32 | NUR ---
FAMILY AT BEDSIDE. PT CHANGED TO COMFORT CARE STATUS. ALL GTTS TURNED OFF.
--- NOTE | 2021-06-11 03:59 | NUR ---
PT COMFORT CARE. FAMILY AT BEDSIDE. ALL IV FLUID STOPPED. PT REMOVED O2. PT MED WITH ROXANOL 5MG PER FAMILY REQUEST. HEART RATE DOWN TO 87.
--- NOTE | 2021-06-11 05:31 | NUR ---
SHIFT SUMMARY PT CHANGED TO COMFORT CARE AND STOPPED MEDICATIONS. FAMILY AT BEDSIDE. PT TAKING SPOONFULLS OF WATER FROM FAMILY. DENIES PAIN AT THIS TIME. PT REMOVED O2. HEART RATE IS DOWN TO 80'S. SUPPORT GIVEN TO PT AND FAMILY. REPORT TO ON COMING NURSE
--- NOTE | 2021-06-11 05:49 | NUR ---
PAIN [id number] SAID,"I THINK HE IS HAVING PAIN. HE IS MOANING MORE". PT MED WITH ROXANAL 10 MG SL.
--- NOTE | 2021-06-11 08:00 | NUR ---
ASSUMED CARE AT 0700. PT APPEARS COMFORTABLE. DENIES PAIN, DENIES SHORTNESS OF BREATH.
--- NOTE | 2021-06-11 10:02 | NUR ---
PT TRANSFERRED TO MEDICAL FLOOR AROUND 1000. REPORT GIVEN TO SHASTA. ALL BELONGINGS TRANSFERRED WITH PATIENT. AT BEDSIDE FOR TRANSFER
--- NOTE | 2021-06-11 10:30 | NUR ---
1030 RN NOTE PT ARRIVED TO THE MEDICAL FLOOR FROM ICU AT 1015 HRS. WITH HIM. PT IS NOT VERBALLY REPONSIVE. HE DOES NOT APPEAR TO BE UNCOMFORTABLE. AT 1015 HE WAS POSITIONED ON HIS RIGHT SIDE. HERNADEZ CATHETER TO BEDSIDE DRAINAGE. RECTAL TUBE TO BEDSIADE DRAINAGE BAG. MEPILEX DRESSING ON LEFT ELBOW AREA LEFT UNDISTURBED AT THIS TIME. BRUISING NOTED TO BOTH ARMS.
--- NOTE | 2021-06-11 12:30 | NUR ---
1230 COMFORT CARE NOTE PT REPOSITIONED. NOT RESPONSIVE TO VERBAL STIMULI. HE DOES NOT APPEAR TO BE DISTRESSED OR UNCOMFORTABLE. HE SETTLES QUETLY ONCE REPOSITIONED. HERNADEZ, RECTAL TUBE AND CENTRAL LINE TO R IJ REMAIN IN PLACE.
--- NOTE | 2021-06-11 14:30 | NUR ---
9934 COMFORT CARE NOTE PT REPOSITIONED. NOT RESPONSIVE TO VERABL STIMULI. NOT AT BEDSIDE AT THIS TIME. HE DOES NOT SEEM TO BE IN ANY PAIN OR DISTRESS OR DISCOMFORT. HERNADEZ, RECTAL TUBE AND RIJ CATHETER IN PLACE.
--- NOTE | 2021-06-11 15:15 | NUR ---
[address] BLANC NOTIFIED OF NO RESPIRATIONS/ NO HEART RATE BY YOVANI DAVALOS RN. AT BEDSIDE. PALLIATIVE CARE RN WENT INTO THE ROOM TO TALK WITH MR YANG'S .
--- NOTE | 2021-06-11 17:17 | NUR ---
ADDENDUM HAS LEFT MR YANG'S ROOM. EYE ICE PACK APPLIED. HERNADEZ CATHETER AND RECTAL CATHETER REMOVED. R IJ CATHETER LEFT IN PLACE. SKIN CARE/CLEANSING DONE.
== END 2021-06-11 15:10 | DRG 871 ==
LOC: ER 19:50 → ICUW 23:13 → MEDS 06-11 10:02 → ENPENDDIS 06-11 15:32
PROVIDERS: Emergency Medicine; Internal Medicine; Internal Medicine Critical Care Medicine; ADMIT Internal Medicine
PROC: 3E033XZ Introduction of Vasopressor into Peripheral Vein, Percutaneous Approach (ICD-10-PCS; principal; 2021-06-08)
PROC: 3E03329 Introduction of Other Anti-infective into Peripheral Vein, Percutaneous Approach (ICD-10-PCS; 2021-06-08)
DX: A41.81 Sepsis due to Enterococcus (principal); R65.21 Severe sepsis with septic shock; G92.8 Other toxic encephalopathy; J69.0 Pneumonitis due to inhalation of food and vomit; I21.A1 Myocardial infarction type 2; J96.01 Acute respiratory failure with hypoxia; I69.354 Hemiplegia and hemiparesis following cerebral infarction affecting left non-dominant side; N17.9 Acute kidney failure, unspecified; R64 Cachexia; N39.0 Urinary tract infection, site not specified; I48.92 Unspecified atrial flutter; K86.1 Other chronic pancreatitis; K55.9 Vascular disorder of intestine, unspecified; K56.0 Paralytic ileus; Z68.1 Body mass index [BMI] 19.9 or less, adult; K52.9 Noninfective gastroenteritis and colitis, unspecified; Z51.5 Encounter for palliative care; Z66 Do not resuscitate; Z20.822 Contact with and (suspected) exposure to COVID-19; E78.5 Hyperlipidemia, unspecified; I10 Essential (primary) hypertension; K21.9 Gastro-esophageal reflux disease without esophagitis; E78.00 Pure hypercholesterolemia, unspecified; K20.90 Esophagitis, unspecified without bleeding; E86.0 Dehydration; I48.91 Unspecified atrial fibrillation; F10.20 Alcohol dependence, uncomplicated; F17.210 Nicotine dependence, cigarettes, uncomplicated; Z79.82 Long term (current) use of aspirin; Z79.899 Other long term (current) drug therapy
CPT/HCPCS: 0241U; 31720; 36415; 36556; 36600; 51702; 70450; 71045; 71260; 74176; 80047; 80048; 80053; 80069; 80202; 81001; 82550; 82803; 82947; 83605; 83690; 83735; 84484; 85014; 85025; 85610; 85651; 86140; 87040; 87077; 87086; 87186; 93005; 93010; 93308; 93312; 93321; 93325; 96365; 96366; 96375; 99285-25; A9270; C1751; J0282; J0290; J0610; J0692; J0696; J1160; J1644; J1650; J2001; J2020; J2250; J2370; J2543; J2704; J3370; J7030; J7040; J7060; P9046; Q9967